=== PATIENT | male | born 1980 | race African-American/Black ===

== ENCOUNTER 2020-08-29 13:18 | Emergency (ER) | payer MEDICAID ==
[~2020-08-29] VITALS: Ht 175.3 cm; Wt 68.0 kg
[2020-08-29] MEDS ORDERED: CIPR-263 MT (16:36)
[2020-08-29] MEDS ORDERED: PYR200 MT (16:36)
[2020-08-29 16:37] LABS: CLARITY URINE TURBID (CLEAR); COLOR URINE YELLOW (YELLOW); KETONES URINE NEGATIVE (NEGATIVE); LEUKOCYTE ESTERASE URINE 2+ (NEGATIVE); NITRITE URINE POSITIVE (NEGATIVE); OCCULT BLOOD URINE 3+ (NEGATIVE); PH URINE 7.5 (4.5-8.0); PROTEIN URINE 1+ (NEGATIVE); SPECIFIC GRAVITY URINE 1.025 (1.005-1.030)
[2020-08-29] MEDS ORDERED: TRAM50TA3 MT (16:39)
[2020-08-29] MEDS ORDERED: HYDR-4346 MT ×2 (16:39→16:45)
[2020-08-29] MEDS ORDERED: NAPR-1176 MT (16:57)
[2020-08-29] MEDS ORDERED: HYDROCODONE/ACETAMINOPHEN 5/325MG TABLET PO ONE (17:00)
[2020-08-29 17:02] VITALS: BP 134/89
[2020-08-29 17:10] LABS: *AMPHETAMINES SCREEN URINE NEGATIVE (NEGATIVE); *BARBITURATES SCREEN URINE NEGATIVE (NEGATIVE); *BENZODIAZEPINES SCREEN URINE NEGATIVE (NEGATIVE); *COCAINE SCREEN URINE NEGATIVE (NEGATIVE); METHADONE URINE SCREEN NEGATIVE (NEGATIVE)
[2020-08-29 17:11] LABS: CANNABINOID URINE SCREEN PRESUMTIVE POSITIVE (NEGATIVE); OPIATES URINE SCREEN NEGATIVE (NEGATIVE); PHENCYCLIDINE URINE SCREEN NEGATIVE (NEGATIVE)
== END 2020-08-29 17:09 | disposition home or self-care (01) ==
LOC: ER 13:18
DX: N41.9 Inflammatory disease of prostate, unspecified (principal)
CPT/HCPCS: 80305; 81003; 99283; Z7610; A4315